=== PATIENT | female | born 1980 | race Asian ===

== ENCOUNTER 2024-03-28 07:54 | Inpatient (IN) | payer OTHER ==
[~2024-03-28] VITALS: Ht 149.9 cm; Wt 66.7 kg
[2024-03-28] MEDS ORDERED: OXYTOCIN-LR 30 UNITS/500ML 500 ML IV SCH (08:30)
[2024-03-28] MEDS ORDERED: CEFAZOLIN SODIUM 2 GM VIAL IVPB PRN (08:30)
[2024-03-28] MEDS ORDERED: LACTATED RINGERS 1000ML 1,000 ML IV PRN (08:30)
[2024-03-28] MEDS ORDERED: LACTATED RINGERS 1000ML 1,000 ML IV SCH (08:30)
[2024-03-28] MEDS ORDERED: CALDOLOR 800MG+NS 250ML 250 ML IV PRN (08:30)
[2024-03-28 08:51] LABS: HEMATOCRIT 38.8 % (36-48); MEAN CORPUSCULAR HEMOGLOBIN 33.7 pg (27.0-33.0); MEAN CORPUSCULAR HGB CONC 35.6 g/dL (32.0-36.0); MEAN CORPUSCULAR VOLUME 94.9 fL (79-99); RED BLOOD CELL COUNT(AUTO) 4.09 MIL/uL (4.00-5.50); RED CELL DISTRIBUTION WIDTH 13.1 % (11.0-15.5)
[2024-03-28] MEDS ORDERED: METHYLERGONOVINE MALEATE 0.2 MG/1 ML ML ONE ×2 (09:00→12:20)
[2024-03-28] MEDS ORDERED: MISOPROSTOL 200 MCG TABLET ONE (09:00)
[2024-03-28 09:03] LABS: APPEARANCE,URINE CLEAR (CLEAR); BILIRUBIN,URINE NEGATIVE (NEGATIVE); COLOR,URINE LIGHT-YELLOW (YELLOW); GLUCOSE, URINE (UA) NEGATIVE (NEGATIVE); KETONES,URINE NEGATIVE (NEGATIVE); LEUKOCYTE ESTERASE ,URINE 75 Leu/uL (NEGATIVE); NITRATE,URINE NEGATIVE (NEGATIVE); OCCULT BLOOD,URINE NEGATIVE (NEGATIVE); PH,URINE 6.5 (5.0-8.0); PROTEIN,URINE NEGATIVE (NEGATIVE); UROBILINOGEN,URINE 0.2 mg/dL (0.2-1.0)
[2024-03-28] MEDS ORDERED: FENTANYL CITRATE PF 50 MCG/1 ML 2ML VIAL ONE (09:05)
[2024-03-28 09:10] LABS: ADD UA MICROSCOPIC YES
[2024-03-28] MEDS ORDERED: MORPHINE PF 100MG/10ML AMP IV ONE (09:10)
[2024-03-28 09:14] LABS: BACTERIA,URINE RARE /HPF (None Seen); MUCUS,URINE RARE LPF (None Seen); SQUAMOUS EPITHELIAL CELL,UR FEW /HPF (0-2)
[2024-03-28] MEDS ORDERED: OXYTOCIN 10 USP UNITS/ML ONE ×3 (09:33→12:22)
[2024-03-28] MEDS ORDERED: ROPIVACAINE 0.5% 5MG/ML 30ML ONE (09:52)
[2024-03-28] MEDS ORDERED: PHENYLEPHRINE HCL 10 MG/ML 1ML VIAL IV ONE (10:07)
[2024-03-28] MEDS ORDERED: 0.9%NACL 10ML VIAL IVP PRN (11:30)
[2024-03-28] MEDS ORDERED: MEPERIDINE-PF 75 MG/ML SYG IM PRN (11:30)
[2024-03-28] MEDS ORDERED: PROMETHAZINE HCL 25 MG/ML 1ML AMPULE IM PRN (11:30)
[2024-03-28 12:08] LABS: HIV 1&2 ANTIBODY Non-Reactive (Negative); HIV-1 p24 Antigen Non-Reactive (Negative)
[2024-03-28] MEDS: OXYTOCIN-LR 30 UNITS/500ML 500 ML IV PRN (12:15)
[2024-03-28] MEDS ORDERED: OXYTOCIN 10 UNIT/1ML 10ML VIAL ONE (12:21)
[2024-03-28] MEDS: OXYTOCIN 10 USP UNITS/ML IV SCH (12:40)
[2024-03-28] MEDS: METHYLERGONOVINE MALEATE 0.2 MG/1 ML ML IM SCH (12:40)
[2024-03-28 13:40] VITALS: BP 131/79; PULSE 75; RESP 20
[2024-03-28 14:42] LABS: RAPID PLASMA REAGIN NONREACTIVE (NONREACTIVE)
[2024-03-28 15:55] VITALS: BP 131/87; PULSE 64; RESP 18
[2024-03-28] MEDS: DIPH,PERTUSS(ACELL),TET VAC/PF 0.5 ML VIAL IM ONE (17:00)
[2024-03-28] MEDS: CALDOLOR 800MG+NS 250ML 250 ML IV SCH (17:38)
[2024-03-28] MEDS: DEXTROSE 5 %-0.45 % NACL 1,000 ML IV PRN (17:38)
[2024-03-28 19:05] VITALS: BP 129/82; PULSE 97; RESP 24
[2024-03-28 23:30] VITALS: BP 109/65; PULSE 84; RESP 20
[2024-03-29] MEDS ORDERED: ACETAMINOPHEN 500 MG TABLET PO PRN (00:30)
[2024-03-29] MEDS ORDERED: DIPHENHYDRAMINE HCL 25 MG CAPSULE PO PRN (00:30)
[2024-03-29] MEDS ORDERED: ACETAMINOPHEN WITH CODEINE 1 TAB TAB PO PRN (00:30)
[2024-03-29] MEDS ORDERED: HYDROCODONE/ACETAMINOPHEN 5/325 MG TAB PO PRN (00:30)
[2024-03-29] MEDS ORDERED: LANOLIN 30GM OINTMENT TP PRN (00:30)
[2024-03-29 03:17] VITALS: BP 95/60; PULSE 83; RESP 22
[2024-03-29 06:34] LABS: HEMATOCRIT 22.9 % (36-48); MEAN CORPUSCULAR HEMOGLOBIN 33.9 pg (27.0-33.0); MEAN CORPUSCULAR HGB CONC 35.8 g/dL (32.0-36.0); MEAN CORPUSCULAR VOLUME 94.6 fL (79-99); RED BLOOD CELL COUNT(AUTO) 2.42 MIL/uL (4.00-5.50); RED CELL DISTRIBUTION WIDTH 12.6 % (11.0-15.5); WHITE BLOOD COUNT (AUTO) 14.2 K/uL (4.8-10.8)
[2024-03-29 07:27] VITALS: BP 93/47; PULSE 75
[2024-03-29] MEDS ORDERED: BISACODYL 10 MG SUPP.RECT RC PRN (09:00)
[2024-03-29] MEDS: DOCUSATE SODIUM 100 MG CAP PO SCH (09:27)
[2024-03-29] MEDS: SIMETHICONE 80 MG TAB.CHEW PO PRN (09:27)
[2024-03-29] MEDS: IBUPROFEN 800 MG TAB PO SCH (09:28)
[2024-03-29] MEDS ORDERED: FOLI20CA PO (09:45)
[2024-03-29] MEDS ORDERED: PREN1TAB80 PO (09:45)
[2024-03-29 11:20] VITALS: BP 104/67; PULSE 96
[2024-04-01 05:14] LABS: HEPATITIS Bs ANTIGEN SCREEN P Negative (Negative)
== END 2024-03-29 14:18 | disposition home or self-care (01) | DRG 788 ==
LOC: LDH 08:17 → WSH 15:51
PROVIDERS: ADMIT Obstetrics & Gynecology; ATTEND Obstetrics & Gynecology
PROC: 10D00Z1 Extraction of Products of Conception, Low, Open Approach (ICD-10-PCS; principal; 2024-03-28 09:32)
DX: O80 Encounter for full-term uncomplicated delivery (principal); Z3A.39 39 weeks gestation of pregnancy; Z37.0 Single live birth
CPT/HCPCS: 36415; 59510; 81001; 85027; 86592; 86701; 86850; 86900; 86901; 87088; 87340; 87390; 90715; A4344; G0378; J1741; J2210; J2274; J2371; J2590; J2795; J3010; J7120; A4248; J0690; L0625